=== PATIENT | female | born 1955 | race Caucasian/White ===

== ENCOUNTER 2023-06-08 08:04 | Day surgery (SDC) | payer BC ==
[~2023-06-08 08:04] MED LIST: Metoclopramide 10 MG/2 ML SDV IV PRN
[2023-06-08 08:39] LABS: GLUCOSE,POC 203 mg/dL (74-110)
[2023-06-08] MEDS: Sodium Chloride 0.9% 1,000 ML IV SCH (08:40)
[2023-06-08] MEDS ORDERED: Propofol 1,000 MG/100 ML SDV ONE (09:30)
== END 2023-06-08 11:25 | disposition home or self-care (01) ==
LOC: LB.SDS 08:04
PROVIDERS: ATTEND Surgery
DX: Z12.11 Encounter for screening for malignant neoplasm of colon (principal); D12.3 Benign neoplasm of transverse colon; D12.2 Benign neoplasm of ascending colon; I10 Essential (primary) hypertension; E78.5 Hyperlipidemia, unspecified; E11.9 Type 2 diabetes mellitus without complications
CPT/HCPCS: 45385; 82947; 88305; J2704; J7030